=== PATIENT | male | born 1980 ===

== ENCOUNTER 2023-03-24 02:47 | Emergency (ER) | payer SELFPAY ==
[2023-03-24] VITALS (25 sets, daily range): BP systolic 106–127; BP diastolic 72–108; PULSE 94–102; RESP 5–26; TEMP 36.8; O2SAT 84–98
--- NOTE | 2023-03-24 03:17 | W.ED.GENAD ---
Discharge Plan Disposition Patient Disposition: Home Discharge Details Clinical Impression: Sleep apnea with cognitive complaints Primary Care Provider: Unknown,Unknown ED Provider: Shalom Priest Home Meds and New Rx's Prescriptions: No Action Unable to Obtain Discharge Instructions Additional Instructions: Continue to use what ever supportive respiratory devices used at home to maintain normal oxygen saturation while you sleep. Follow-up with your regular primary care doctor at your next intended routine interval. You can always return to the ER for any new concerns or sudden changes in your health which you feel require emergency medical attention. Medical Decision Making The patient was seen and examined multiple times. He refused most aspects of care but was requesting a BiPAP so he was compliant with respiratory therapy including BiPAP placement, BiPAP management, and ultimately excepting a DuoNeb treatment to the circuit. His oxygen saturation improved to 95% and I allowed him to sleep over the arc of the shift since it was early in the morning and there is a relatively significant snowstorm outside. While the patient may be having some form of a behavioral health problem, he does not appear to be having a neurologic problem beyond the hypercarbic narcosis indicative of hypoventilation and CO2 sequestration due to his obesity. Once the patient has slept here in the emergency room for a few hours, he will be reapproached about discharge, especially if he is going to continue to refuse any care or medical management. HPI General Date/Time Provider Initiated Documentation: 03/24/23 03:11. HPI Narrative: The patient is a 43-year-old male with an unknown past medical history, who is morbidly obese and tells me he is a smoker, and presents to the emergency department this evening from a 24-hour hold at a local incarceration facility with complaints of shortness of breath and a low oxygen level. EMS responded and found the patient with an oxygen level of 62% on room air. The patient reportedly told EMS that he uses home BiPAP with oxygen at night to sleep and does not have that equipment with him. On arrival to the emergency room, the patient is both somnolent and aggressive when aroused. The patient is verbally combative with staff and provides confrontational and tangential answers to questions. The patient consented to have a BiPAP mask placed. The patient declined medical treatment with medications and refused radiology and blood testing. When presented with the opportunity to leave, the patient at first seemed excited at the possibility, but then signed the consent for treatment and became argumentative again. Related Data Home Medications Medication Instructions Recorded Confirmed Unknown [Unable to Obtain] 03/24/23 03/24/23 Allergies Allergy/AdvReac Type Severity Reaction Status Date / Time Unable to Assess Allergy Unverified 03/24/23 04:01 General Stated Complaint: RespSymp KAYLA: 3 PFSH All Active Problems (Updated 03/24/23 @ 06:46 by Shalom Priest MD) Sleep apnea with cognitive complaints (Acute) Social History Smoking/Tobacco Use Status: Unknown Smoking risk assessment performed?: Yes Substance use type: unknown Details: pt will not answer questions Exam Narrative Exam Narrative: The patient is a morbidly obese male, who is modestly hypoxic even with 4 L nasal cannula oxygen (89 to 91%), and exhibits pickwickian features of likely indicative of hypercarbic respiratory failure manifesting as somnolence with intermittent gasping respirations and low circulating oxygen. When the patient is aroused he is mildly confused but is quite verbally aggressive and refuses care. The patient is frequently pulling off his blood pressure cuff, oxygen saturation probe, and nasal cannula. The patient seems to be more verbally abusive to female staff and male staff, however, he is refusing to follow instructions, provide requested information, or participate in care. The patient's lung sounds are diffusely wheezy throughout all jaime auscultated. The patient had faint heart sounds with indistinguishable S1 and S2 that appear to be at a regular rhythm and rate. I did not appreciate bowel sounds in this patient, and the patient refused to allow me to evaluate his abdomen by palpation. The patient has some venous stasis edematous changes in his distal extremities. There are some areas of acute erythema on his bilateral feet, although there are no breaks in the skin or obvious ulcerations or lesions present. The patient appears to have bilateral conjunctivitis with a whitish discharge developing in both eyes during the examination. The patient is able to answer Mini-Mental Status questions appropriately including his name and knowing that it is spelled wrong, his date of , the current time and the current location. The patient initially refused to transfer from the EMS stretcher to his own bed, but he did ultimately stand up under his own power and transfer himself. The patient spontaneously moves all 4 extremities without any difficulty and does not appear to have any cranial nerve abnormalities. The patient continues to refuse to answer questions or answers them tangentially with deflecting responses. Course Reevaluation(s) Initial Evaluation: The patient was reevaluated multiple times and ultimately was placed on BiPAP by respiratory therapy here in the emergency room. This significantly improved his oxygen saturations in the mid 90s after some management of the I/E ratio and FiO2. The patient also consented to a DuoNeb treatment through the mask which alleviated the course wheezing initially auscultated diffusely throughout his lungs. We contacted the state police and determined that the patient was found sitting in a car in a field in [place], [place]. When the car was approached by [facility] police, the patient also refused to answer any questions or be participatory with the state police at that time. He was placed on a 24-hour hold at the local incarceration facility where he was then found to be markedly hypoxic and short of breath at night while trying to sleep. State police said that they found a crack pipe on the patient but that they tested him for alcohol and he was negative by breathalyzer. Time: 06:44 Reevaluation: The patient was arousable and more interactive with less confusion. He was ambulatory to the bathroom without difficulty. He is maintaining normal oxygen saturation without additional respiratory supportive care. The patient be discharged to find transportation home this morning. Vital Signs Vital signs: Vital Signs Temperature 36.8 C 03/24/23 02:58 Pulse 98 H 03/24/23 02:58 Respiratory Rate 24 03/24/23 02:58 Blood Pressure 106/74 03/24/23 02:58 Pulse Oximetry 91 L 03/24/23 02:58 Temperature 36.8 C 03/24/23 02:58 Temperature Source Temporal Artery Scan 03/24/23 02:58 Pulse 98 H 03/24/23 02:58 Respiratory Rate 24 03/24/23 02:58 Blood Pressure 106/74 03/24/23 02:58 Blood Pressure Position Supine 03/24/23 02:58 Pulse Oximetry 91 L 03/24/23 02:58
[2023-03-24] MEDS: Albuterol/Ipratropium 3 ML UPD VIAL UPD (03:49)
--- NOTE | 2023-03-24 04:02 | NUR.NOTE ---
Unable to obtain information from the patient, he refuses to answer questions, he is capable of communication, he is very vocal when he wants or does not want something, but he will not provide medical information, KEISHA
== END 2023-03-24 07:16 | disposition home or self-care (01) ==
PROVIDERS: Emergency Provider Emergency Medicine Emergency Medical Services
DX: E66.2 Morbid (severe) obesity with alveolar hypoventilation (principal); R09.02 Hypoxemia; F17.210 Nicotine dependence, cigarettes, uncomplicated
CPT/HCPCS: 94640; 99283; 99284; J7620